=== PATIENT | female | born 1975 | race Caucasian/White ===

== ENCOUNTER 2018-02-28 12:40 | Emergency (ER) | payer OTHER ==
[~2018-02-28] VITALS: Ht 154.9 cm; Wt 68.5 kg
[2018-02-28 12:44] VITALS: Ht 154.9 cm; Wt 68.5 kg
[2018-02-28 13:45] VITALS: BP 107/71
== END 2018-02-28 13:45 | disposition home or self-care (01) ==
LOC: ED 12:40
DX: M54.6 Pain in thoracic spine (principal); R20.2 Paresthesia of skin; M54.2 Cervicalgia

== ENCOUNTER 2020-03-07 08:48 | Emergency (ER) | payer OTHER ==
[~2020-03-07] VITALS: Ht 152.4 cm; Wt 73.0 kg
[2020-03-07 08:55] VITALS: BP 131/76; Ht 152.4 cm; Wt 73.0 kg
== END 2020-03-07 11:02 | disposition home or self-care (01) ==
LOC: ED 08:48
DX: S29.012A Strain of muscle and tendon of back wall of thorax, initial encounter (principal); N64.4 Mastodynia; X58.XXXA Exposure to other specified factors, initial encounter; Y93.89 Activity, other specified; Y92.89 Other specified places as the place of occurrence of the external cause; Y99.8 Other external cause status
CPT/HCPCS: 76641; Q0092